=== PATIENT | female | born 1995 | race Caucasian/White ===

== ENCOUNTER 2016-03-16 10:54 | Emergency (ER) | payer OTHER ==
[2016-03-16 11:49] LABS: Hematocrit 44 % (35-47); Hemoglobin 14.9 g/dl (12.0-16.0); Mean Corpuscular HGB Conc 34 g/dl (31-36); Mean Corpuscular Hemoglobin 29 pg (27-31); Mean Corpuscular Volume 86 fL (80-97); Mean Platelet Volume 8 um3 (7.4-10.4); Red Cell Distribution Width 12 % (10.5-15); White Blood Count 13.6 10^3/ul (3.5-10.8)
[2016-03-16 12:04] LABS: Albumin 4.6 g/dL (3.2-5.2); BUN/Creatinine Ratio 12.3 (8-20); Calcium 10.4 mg/dL (8.6-10.3); EGFR African American 115.9 (>60); EGFR Non-African American 90.1 (>60); Globulin 3.9 g/dL (2-4); Potassium 3.7 mmol/L (3.5-5.0); Total Bilirubin 0.5 mg/dL (0.2-1.0); Total Protein 8.5 g/dL (6.4-8.9)
--- NOTE | 2016-03-16 12:34 | RAD ---
Indication: Vaginal bleeding, positive test. Real-time sonography of the pelvis was performed. The study was performed utilizing endovaginal technique. The uterus measures 8.7 x 4.3 x 6.1 cm. Endometrial echo measures 13 mm. There is no evidence of intrauterine noted. No free fluid is identified. The right ovary measures 4.0 x 2.4 x 2.6 cm. Left ovary measures 2.0 x 1.3 x 2.1 cm. Doppler interrogation demonstrates flow in both ovaries. IMPRESSION: No adnexal masses are noted. No evidence of intrauterine is noted.
[2016-03-16 13:13] VITALS: BP 122/78
[2016-03-16 13:20] LABS: Urine Bacteria 1+ (Absent); Urine Bilirubin Negative (Negative); Urine Glucose Negative (Negative); Urine Nitrite Negative (Negative)
--- NOTE | 2016-03-19 06:52 | ED ---
Progress - Progress Note Progress Note: Patient with final c/s for urine evaluation. Shows >100,000 E coli resistant to ampicillin. Patient had positive test with concern for ectopic. Will start patient on macrobid one po bid #14. Will attempt to call patient after 7a. Course/Dx - Diagnoses Provider Diagnoses: Rule out ectopic
--- NOTE | 2016-03-25 09:45 | ED ---
Danny Ovalle Adam, scribed for Robert Boykin MD on 03/16/16 at 1221 . Abdominal Pain/Female - HPI Summary HPI Summary: Pt is a 20 year old female presenting with abdominal cramping and vaginal bleeding. She began spotting this morning and used 1 pad. She reports an elevated temperature of 99.8 F. She denies CP and SOB. She is unsure how far along she is in her . A4 (3 miscarriages, 1 ). - History of Current Complaint Chief Complaint: EDVaginalBleeding Stated Complaint: 6WKS PREG / CRAMPING/VAG DISCHARGE Time Seen by Provider: 03/16/16 12:07 Hx Obtained From: Patient Hx Last Menstrual Period: Last week Onset/Duration: Gradual Onset, Lasting Hours, Still Present Timing: Constant Severity Initially: Moderate Severity Currently: Moderate Pain Intensity: 7 Pain Scale Used: 0-10 Numeric Location: Diffuse Radiates: No Character: Cramping Aggravating Factor(s): Nothing Alleviating Factor(s): Nothing Associated Signs and Symptoms: Positive: Vaginal Bleeding Allergies/Adverse Reactions: Allergies Allergy/AdvReac Type Severity Reaction Status Date / Time Bee Venom Allergy Severe Anaphylatic Verified 03/16/16 10:58 Shock [place] Flavor Allergy Severe Swelling Verified 03/16/16 10:58 Of Face,Lips,& Throat Basil Oil Allergy Hives Verified 03/16/16 10:58 PMH/Surg Hx/FS Hx/Imm Hx Endocrine/Hematology History: Denies: Hx Diabetes, Hx Thyroid Disease Cardiovascular History: Denies: Hx Congestive Heart Failure, Hx Hypercholesterolemia, Hx Hypertension , Hx Pacemaker/ICD, Hx Peripheral Vascular Disease, Other Cardiovascular Problems/Disorders Respiratory History: Reports: Hx Asthma Denies: Hx Chronic Obstructive Pulmonary Disease (COPD), Other Respiratory Problems/Disorders GI History: Denies: Hx Ulcer Musculoskeletal History: Denies: Hx Arthritis, Hx Rheumatoid Arthritis, Hx Osteoporosis, Hx Scoliosis Sensory History: Denies: Hx Cataracts, Hx Contacts or Glasses, Hx Glaucoma, Hx Hearing Aid Opthamlomology History: Denies: Hx Cataracts, Hx Contacts or Glasses, Hx Glaucoma Neurological History: Denies: Hx Headaches, Hx Seizures, Hx Transient Ischemic Attacks (TIA), Other Neuro Impairments/Disorders Psychiatric History: Denies: Hx Anxiety, Hx Depression, Hx Panic Disorder - Surgical History Surgery Procedure, Year, and Place: CHOLECYSTECTOMY Mar 2015 Infectious Disease History: No Infectious Disease History: Denies: Hx Hepatitis, Hx Human Immunodeficiency Virus (HIV), Traveled Outside the [place] in Last 30 Days - Family History Known Family History: Positive: Diabetes - Grandmother - Social History Occupation: Employed Full-time Lives: Alone Alcohol Use: None Hx Substance Use: No Substance Use Type: Reports: None Hx Tobacco Use: Yes Smoking Status (MU): Heavy Every Day Tobacco Smoker Type: Cigarettes Amount Used/How Often: 1 ppd Length of Time of Smoking/Using Tobacco: 1 year Review of Systems Negative: Chest Pain Negative: Shortness Of Breath Positive: Abdominal Pain Positive: other - Vaginal bleeding All Other Systems Reviewed And Are Negative: Yes Physical Exam - Summary Physical Exam Summary: GENERAL: Awake, alert, oriented, no acute distress, very pleasant HEENT: Head is normocephalic, atraumatic, anicteric sclera, clear conjunctiva, mucous membranes moist, no erythema, no discharge, no lesions, neck is supple, trachea is midline, no JVD CARDIAC: Regular rate and rhythm, S1, S2, no rub, no murmur, no gallop, 2+ radial and pedal pulses bilaterally RESPIRATORY: Clear to auscultation bilaterally with no rales, rhonchi, or wheezes, non-tender ABDOMEN: Bowel sounds positive, no bruit, soft, non-tender, no CVA tenderness EXTREMITIES: No edema, warm, dry, moving all extremities in a grossly normal manner NEUROLOGICAL: Mood is appropriate, moving all extremities in a grossly normal manner Triage Information Reviewed: Yes Vital Signs On Initial Exam: Initial Vitals Temp Pulse Resp BP Pulse Ox 97.5 F 99 16 134/63 100 03/16/16 10:56 03/16/16 10:56 03/16/16 10:56 03/16/16 10:56 03/16/16 10:56 Vital Signs Reviewed: Yes - [place] Coma Scale Coma Scale Total: 15 Diagnostics - Vital Signs Vital Signs Temp Pulse Resp BP Pulse Ox 03/16/16 10:56 97.5 F 99 16 134/63 100 - Laboratory Lab Results: Lab Results 03/16/16 03/16/16 03/16/16 Range/Units 11:35 11:35 11:35 WBC 13.6 H (3.5-10.8) 10^3/ul RBC 5.10 (4.0-5.4) 10^6/ul Hgb 14.9 (12.0-16.0) g/dl Hct 44 (35-47) % MCV 86 (80-97) fL MCH 29 (27-31) pg MCHC 34 (31-36) g/dl RDW 12 (10.5-15) % Plt Count 351 (150-450) 10^3/ul MPV 8 (7.4-10.4) um3 Neut % (Auto) 74.8 (38-83) % Lymph % (Auto) 16.1 L (25-47) % Pike % (Auto) 6.1 (1-9) % Eos % (Auto) 2.5 (0-6) % Baso % (Auto) 0.5 (0-2) % Absolute Neuts (auto) 10.2 H (1.5-7.7) 10^3/ul Absolute Lymphs (auto) 2.2 (1.0-4.8) 10^3/ul Absolute Monos (auto) 0.8 (0-0.8) 10^3/ul Absolute Eos (auto) 0.3 (0-0.6) 10^3/ul Absolute Basos (auto) 0.1 (0-0.2) 10^3/ul Absolute Nucleated RBC 0 10^3/ul Nucleated RBC % 0 INR (Anticoag Therapy) 1.06 (0.89-1.11) APTT 34.0 (26.0-36.3) seconds Sodium 132 L (133-145) mmol/L Potassium 3.7 (3.5-5.0) mmol/L Chloride 102 (101-111) mmol/L Carbon Dioxide 23 (22-32) mmol/L Anion Gap 7 (2-11) mmol/L BUN 10 (6-24) mg/dL Creatinine 0.81 (0.51-0.95) mg/dL Est GFR ( Amer) 115.9 (>60) Est GFR (Non-Af Amer) 90.1 (>60) BUN/Creatinine Ratio 12.3 (8-20) Glucose 86 (70-100) mg/dL Lactic Acid (0.5-2.0) mmol/L Calcium 10.4 H (8.6-10.3) mg/dL Total Bilirubin 0.50 (0.2-1.0) mg/dL AST 16 (13-39) U/L ALT 19 (7-52) U/L Alkaline Phosphatase 59 (34-104) U/L Total Protein 8.5 (6.4-8.9) g/dL Albumin 4.6 (3.2-5.2) g/dL Globulin 3.9 (2-4) g/dL Albumin/Globulin Ratio 1.2 (1-3) Beta HCG, Quant Pending 03/16/16 Range/Units 11:35 WBC (3.5-10.8) 10^3/ul RBC (4.0-5.4) 10^6/ul Hgb (12.0-16.0) g/dl Hct (35-47) % MCV (80-97) fL MCH (27-31) pg MCHC (31-36) g/dl RDW (10.5-15) % Plt Count (150-450) 10^3/ul MPV (7.4-10.4) um3 Neut % (Auto) (38-83) % Lymph % (Auto) (25-47) % Pike % (Auto) (1-9) % Eos % (Auto) (0-6) % Baso % (Auto) (0-2) % Absolute Neuts (auto) (1.5-7.7) 10^3/ul Absolute Lymphs (auto) (1.0-4.8) 10^3/ul Absolute Monos (auto) (0-0.8) 10^3/ul Absolute Eos (auto) (0-0.6) 10^3/ul Absolute Basos (auto) (0-0.2) 10^3/ul Absolute Nucleated RBC 10^3/ul Nucleated RBC % INR (Anticoag Therapy) (0.89-1.11) APTT (26.0-36.3) seconds Sodium (133-145) mmol/L Potassium (3.5-5.0) mmol/L Chloride (101-111) mmol/L Carbon Dioxide (22-32) mmol/L Anion Gap (2-11) mmol/L BUN (6-24) mg/dL Creatinine (0.51-0.95) mg/dL Est GFR ( Amer) (>60) Est GFR (Non-Af Amer) (>60) BUN/Creatinine Ratio (8-20) Glucose (70-100) mg/dL Lactic Acid 0.6 (0.5-2.0) mmol/L Calcium (8.6-10.3) mg/dL Total Bilirubin (0.2-1.0) mg/dL AST (13-39) U/L ALT (7-52) U/L Alkaline Phosphatase (34-104) U/L Total Protein (6.4-8.9) g/dL Albumin (3.2-5.2) g/dL Globulin (2-4) g/dL Albumin/Globulin Ratio (1-3) Beta HCG, Quant Result Diagrams: 03/16/16 11:35 03/16/16 11:35 Lab Statement: Any lab studies that have been ordered have been reviewed, and results considered in the medical decision making process. - Additional Comments Diagnostic Additional Comments: TRANSVAGINAL ULTRASOUND - IMPRESSION: No adnexal masses are noted. No evidence of intrauterine is noted. Abdominal Pain Fem Course/Dx - Diagnoses Provider Diagnoses: Rule out ectopic Discharge - Discharge Plan Condition: Stable Disposition: HOME Patient Education Materials: Ectopic (ED) Referrals: Oswaldo Villanueva MD [Primary Care Provider] - Additional Instructions: Follow up with Dr. Villanueva ([facility]) in 2 days. It is extremely important that you follow up with Dr. Villanueva. It could be deadly if you do not. The documentation as recorded by the Danny ramirez Adam accurately reflects the service I personally performed and the decisions made by me, Robert Boykin MD.
== END 2016-03-16 13:11 | disposition home or self-care (01) ==
LOC: ED 10:54
DX: Z32.01 Encounter for pregnancy test, result positive (principal)
CPT/HCPCS: 36415; 76817; 80053; 81003; 81015; 83605; 84702; 85025; 85610; 85730; 86900; 86901; 87077; 87086; 87186; 99282

== ENCOUNTER 2016-05-10 19:31 | Emergency (ER) | payer OTHER ==
[2016-05-10 19:44] VITALS: BP 119/73
--- NOTE | 2016-05-10 20:11 | UC ---
- HPI Summary HPI Summary: Pt is , first three pregnancies spontaneous miscarriages at 9, 6, and 8 weeks. Now 12w , has had 2 ultrasounds confirming IUP with strong HB at 8w and 10w. Since yesterday has had tightness in mid/upper abdomen. Last BM this morning normal, denies urinary burning. Has had UTIs and doesn't think she has a UTI. Had one episode of vaginal spotting red when she wiped yesterday, but says this has been happening regularly since 6w. - History of Current Complaint Chief Complaint: UCAbdominalPain Stated Complaint: PREG 12 WEEKS CRAMPS Time Seen by Provider: 05/10/16 19:35 Hx Obtained From: Patient Chief Complaint: Concern for Demise Onset/Duration: Started Hours Ago, Atraumatic Timing: Constant Severity: Mild Current Severity: Mild Location of Pain: Other: - epigastric Character: Other: - "tight" Aggravating Factors: Nothing Alleviating Factors: Nothing Associated Signs and Symptoms: Negative: Fever - Assessment Hx Now: Yes - Additional Pertinent History Primary Care Physician: [id number] - Allergies/Home Medications Allergies/Adverse Reactions: Allergies Allergy/AdvReac Type Severity Reaction Status Date / Time Bee Venom Allergy Severe Anaphylatic Verified 03/16/16 10:58 Shock Cj Flavor Allergy Severe Swelling Verified 03/16/16 10:58 Of Face,Lips,& Throat Basil Oil Allergy Hives Verified 03/16/16 10:58 Home Medications: Home Medications Cholecalciferol [Vitamin D] 2,000 unit DAILY 05/10/16 [History Confirmed ] Mv & Min W/ Methylfol [ + Complete Multi 0.267 & 373 mg] 05/10 [History] PMH/Surg Hx/FS Hx/Imm Hx Previously Healthy: Yes Endocrine/Hematology History: Denies: Hx Diabetes, Hx Thyroid Disease Cardiovascular History: Denies: Hx Congestive Heart Failure, Hx Hypercholesterolemia, Hx Hypertension , Hx Pacemaker/ICD, Hx Peripheral Vascular Disease, Other Cardiovascular Problems/Disorders Respiratory History: Reports: Hx Asthma Denies: Hx Chronic Obstructive Pulmonary Disease (COPD), Other Respiratory Problems/Disorders GI History: Denies: Hx Ulcer Musculoskeletal History: Denies: Hx Arthritis, Hx Rheumatoid Arthritis, Hx Osteoporosis, Hx Scoliosis Sensory History: Denies: Hx Cataracts, Hx Contacts or Glasses, Hx Glaucoma, Hx Hearing Aid Opthamlomology History: Denies: Hx Cataracts, Hx Contacts or Glasses, Hx Glaucoma Neurological History: Denies: Hx Headaches, Hx Seizures, Hx Transient Ischemic Attacks (TIA), Other Neuro Impairments/Disorders Psychiatric History: Denies: Hx Anxiety, Hx Depression, Hx Panic Disorder - Surgical History Surgery Procedure, Year, and Place: CHOLECYSTECTOMY Mar 2015 Infectious Disease History: No Infectious Disease History: Denies: Hx Hepatitis, Hx Human Immunodeficiency Virus (HIV), Traveled Outside the [place] in Last 30 Days - Family History Known Family History: Positive: Diabetes - grandmother - Social History Alcohol Use: None Substance Use Type: Reports: None Hx Tobacco Use: Yes Smoking Status (MU): Light Every Day Tobacco Smoker Type: Cigarettes Amount Used/How Often: 1 ppd Length of Time of Smoking/Using Tobacco: 1 year Review of Systems Constitutional: Negative Skin: Negative Eyes: Negative ENT: Negative Respiratory: Negative Cardiovascular: Negative Gastrointestinal: Abdominal Pain Genitourinary: Negative Motor: Negative Neurovascular: Negative Musculoskeletal: Negative Neurological: Negative Psychological: Negative All Other Systems Reviewed And Are Negative: Yes Physical Exam - Physical Exam Triage Information Reviewed: Yes Vital Signs Reviewed: Yes Appearance: Positive: Well-Appearing, No Pain Distress, Well-Nourished Skin: Positive: Warm, Skin Color Reflects Adequate Perfusion, Soft Head/Face: Positive: Normal Head/Face Inspection Eyes: Positive: EOMI, ARGELIA, Conjunctiva Clear ENT: Positive: Normal ENT inspection, Hearing grossly normal, Pharynx normal, TMs normal. Negative: Nasal congestion Neck: Positive: Supple, Nontender, No Lymphadenopathy Respiratory/Lung Sounds: Positive: Clear to Auscultation Cardiovascular: Positive: Normal, RRR. Negative: Murmur Abdomen Description: Positive: Nontender, No Organomegaly, Soft, Other: - FHT obtained, regular in the 140s. Negative: CVA Tenderness (R), CVA Tenderness (L) , Distended, Guarding Bowel Sounds: Positive: Present Psychiatric: Positive: Normal Course/Dx - Course Course Of Treatment: Explained that though my exam is limited, there are no signs of danger or impending miscarriage. Encouraged her to call Dr. Villanueva's office tomorrow, and if pain increases or if she develops heavy vaginal bleeding she should go to the ED. - Diagnoses Provider Diagnoses: Epigastric pain Discharge - Discharge Plan Condition: Stable Disposition: HOME Prescriptions: Ranitidine HCl [Zantac 75] 75 mg PO BEDTIME #20 tab Patient Education Materials: Epigastric Pain (ED) Referrals: Derick Villanueva MD [Medical Doctor] - Additional Instructions: Please call Dr. Villanueva's office tomorrow to discuss your concerns. There are no danger signs now, but if you develop any severe pain or heavy vaginal bleeding, please go to the emergency department.
== END 2016-05-10 20:18 | disposition home or self-care (01) ==
LOC: UCEAST 19:31
DX: O26.891 Other specified pregnancy related conditions, first trimester (principal); Z3A.12 12 weeks gestation of pregnancy; R10.13 Epigastric pain; Z87.440 Personal history of urinary (tract) infections; Z90.49 Acquired absence of other specified parts of digestive tract; F17.210 Nicotine dependence, cigarettes, uncomplicated
CPT/HCPCS: 81002; 87086; 99212; G0463

== ENCOUNTER 2016-05-23 10:16 | Emergency (ER) | payer OTHER ==
--- NOTE | 2016-05-23 12:58 | RAD ---
HISTORY: Cramping, pain, bleeding. The gestational age by previous ultrasound is: The proximally 14 weeks COMPARISONS: March 16, 2016 TECHNIQUE: Multiple transverse and longitudinal ultrasound images were obtained of the pelvis using grayscale, color Doppler, spectral Doppler imaging and M-Mode Doppler imaging using the transabdominal transducer. FINDINGS: UTERUS: The uterus is normal in shape, size, contour, and echotexture. GESTATION: There is a single live intrauterine gestation. The crown-rump length measures 8.2 cm for a gestational age of 14 weeks, 1 day. The LAW is November 20, 2016. cardiac motion is detected at a rate of 155 beats per minute. Gross movement is identified. The amniotic fluid is qualitatively normal. There are no retroplacental fluid collections. CUL-DE-SAC: There is no free fluid within the cul-de-sac. RIGHT OVARY: The right ovary measures 3.7 x 2.1 x 2 cm. Normal arterial and venous waveforms are identifiable within the ovary on spectral Doppler imaging. LEFT OVARY: The left ovary measures 2.8 x 1.7 x 2.7 cm. Normal arterial and venous waveforms are identifiable within the ovary on spectral Doppler imaging. OTHER: The cervix is long and closed measuring 3.4 cm. anatomy is not evaluated as part of this examination. IMPRESSION: SINGLE LIVE INTRAUTERINE GESTATION AT 14 WEEKS AND 1 DAY BY CROWN-RUMP LENGTH.
[2016-05-23] MEDS ORDERED: Acetaminophen TAB* 325 MG PO ONE (13:02)
[2016-05-23 13:17] VITALS: BP 137/80
--- NOTE | 2016-05-23 21:05 | ED ---
Judith Ovalle Erika, scribed for Darion Sethi MD on 05/23/16 at 1155 . Abdominal Pain/Female - HPI Summary HPI Summary: Patient is a 20-year-old female presenting to the ED with a CC of LLQ and suprapubic abdominal cramping starting at 06:00. Patient reports that she is 14 weeks , and she is concerned about the fetus. Patient reports that she moved snow this morning, and may have pulled a muscle - she also reports shooting pain in her lower back. Patient took 650 mg Tylenol at 08:00, with some relief. Patient had an ultrasound done at 10 weeks at the [facility]. A2 - patient has had 2 miscarriages at 6 weeks and 9 weeks. She is followed by Dr. Villanueva. Hx asthma - pt has not used an inhaler since she became . - History of Current Complaint Chief Complaint: EDAbdPain Stated Complaint: 14WKS PREG/CRAMPING-BACK PAIN Time Seen by Provider: 05/23/16 11:29 Hx Obtained From: Patient Hx Last Menstrual Period: Last week Onset/Duration: Gradual Onset, Lasting Hours, Still Present Timing: Constant Severity Currently: Moderate Pain Intensity: 8 Pain Scale Used: 0-10 Numeric Location: Discrete At: LLQ, Suprapubic Character: Cramping Alleviating Factor(s): OTC Analgesics Associated Signs and Symptoms: Positive: Back Pain. Negative: Vaginal Bleeding , Vaginal Discharge Allergies/Adverse Reactions: Allergies Allergy/AdvReac Type Severity Reaction Status Date / Time Bee Venom Allergy Severe Anaphylatic Verified 03/16/16 10:58 Shock [place] Flavor Allergy Severe Swelling Verified 03/16/16 10:58 Of Face,Lips,& Throat Basil Oil Allergy Hives Verified 03/16/16 10:58 PMH/Surg Hx/FS Hx/Imm Hx Endocrine/Hematology History: Denies: Hx Diabetes, Hx Thyroid Disease Cardiovascular History: Denies: Hx Congestive Heart Failure, Hx Hypercholesterolemia, Hx Hypertension , Hx Pacemaker/ICD, Hx Peripheral Vascular Disease, Other Cardiovascular Problems/Disorders Respiratory History: Reports: Hx Asthma Denies: Hx Chronic Obstructive Pulmonary Disease (COPD), Other Respiratory Problems/Disorders GI History: Denies: Hx Ulcer Musculoskeletal History: Denies: Hx Arthritis, Hx Rheumatoid Arthritis, Hx Osteoporosis, Hx Scoliosis Sensory History: Denies: Hx Cataracts, Hx Contacts or Glasses, Hx Glaucoma, Hx Hearing Aid Opthamlomology History: Denies: Hx Cataracts, Hx Contacts or Glasses, Hx Glaucoma Neurological History: Denies: Hx Headaches, Hx Seizures, Hx Transient Ischemic Attacks (TIA), Other Neuro Impairments/Disorders Psychiatric History: Denies: Hx Anxiety, Hx Depression, Hx Panic Disorder - Surgical History Surgery Procedure, Year, and Place: CHOLECYSTECTOMY Mar 2015 Infectious Disease History: No Infectious Disease History: Denies: Hx Hepatitis, Hx Human Immunodeficiency Virus (HIV), Traveled Outside the [place] in Last 30 Days - Family History Known Family History: Positive: Diabetes - grandmother - Social History Alcohol Use: None Hx Substance Use: No Substance Use Type: Reports: None Hx Tobacco Use: Yes Smoking Status (MU): Light Every Day Tobacco Smoker Type: Cigarettes Amount Used/How Often: 1 ppd Length of Time of Smoking/Using Tobacco: 1 year Review of Systems Positive: Abdominal Pain Negative: discharge Positive: Myalgia - lower back pain All Other Systems Reviewed And Are Negative: Yes Physical Exam Triage Information Reviewed: Yes Vital Signs On Initial Exam: Initial Vitals Temp Pulse Resp BP Pulse Ox 98.6 F 94 18 124/80 98 05/23/16 10:27 05/23/16 10:27 05/23/16 10:27 05/23/16 10:27 05/23/16 10:27 Vital Signs Reviewed: Yes Appearance: Positive: Well-Appearing, No Pain Distress, Obese Skin: Positive: Warm, Skin Color Reflects Adequate Perfusion, Dry Head/Face: Positive: Normal Head/Face Inspection Eyes: Positive: Normal ENT: Positive: Normal ENT inspection Neck: Positive: Supple, Nontender Respiratory/Lung Sounds: Positive: Clear to Auscultation, Breath Sounds Present Cardiovascular: Positive: RRR Abdomen Description: Positive: Soft, Other: - Mildly tender LLQ and suprabupic. Unable to feel the fundus Bowel Sounds: Positive: Present Musculoskeletal: Positive: Other - Tenderness in the perisacral area Neurological: Positive: Normal Psychiatric: Positive: Affect/Mood Appropriate Diagnostics - Vital Signs Vital Signs Temp Pulse Resp BP Pulse Ox 05/23/16 10:27 98.6 F 94 18 124/80 98 - Laboratory Lab Statement: Any lab studies that have been ordered have been reviewed, and results considered in the medical decision making process. - Ultrasound No standard instances Ultrasound Interpretation Completed By: Radiologist - IMPRESSION: SINGLE LIVE INTRAUTERINE GESTATION AT 14 WEEKS AND 1 DAY BY CROWN-RUMP LENGTH. Abdominal Pain Fem Course/Dx - Diagnoses Provider Diagnoses: LOW BACK STRAIN Discharge - Discharge Plan Condition: Stable Disposition: HOME Patient Education Materials: Low Back Strain (ED) Forms: *Work Release Referrals: Oswaldo Villanueva MD [Primary Care Provider] - The documentation as recorded by the Judith ramirez Erika accurately reflects the service I personally performed and the decisions made by me, Darion Sethi MD.
== END 2016-05-23 13:15 | disposition home or self-care (01) ==
LOC: ED 10:16
DX: O26.891 Other specified pregnancy related conditions, first trimester (principal); R10.32 Left lower quadrant pain; M54.9 Dorsalgia, unspecified; S39.012A Strain of muscle, fascia and tendon of lower back, initial encounter; F17.210 Nicotine dependence, cigarettes, uncomplicated; X58.XXXA Exposure to other specified factors, initial encounter; Y93.9 Activity, unspecified; Y92.9 Unspecified place or not applicable
CPT/HCPCS: 76815; 99282; A9270-GY

== ENCOUNTER → 2016-07-24 22:07 | Emergency (ER) | payer OTHER ==
[2016-07-24 22:12] VITALS: BP 134/76
== END | disposition left against medical advice (07) ==
LOC: ED 22:07
DX: Z91.81 History of falling (principal); Z53.21 Procedure and treatment not carried out due to patient leaving prior to being seen by health care provider

== ENCOUNTER 2016-11-14 10:25 | Inpatient (IN) | payer MEDICAID ==
[2016-11-14 11:23] LABS: Hematocrit 40 % (35-47); Hemoglobin 13.3 g/dl (12.0-16.0); Mean Corpuscular HGB Conc 34 g/dl (31-36); Mean Corpuscular Hemoglobin 29 pg (27-31); Mean Corpuscular Volume 87 fL (80-97); Mean Platelet Volume 8 um3 (7.4-10.4); Red Blood Count 4.53 10^6/ul (4.0-5.4); Red Cell Distribution Width 13 % (10.5-15); White Blood Count 14.2 10^3/ul (3.5-10.8)
[2016-11-14] MEDS ORDERED: OBEPIDURAL* 250 ML ONE (17:45)
[2016-11-14] MEDS ORDERED: Sodium Citrate/Citric Acid* 15 ML UDC PO PRN (18:25)
[2016-11-14] MEDS ORDERED: Famotidine TAB* 20 MG PO PRN (18:25)
[2016-11-14] MEDS ORDERED: EPHEDrine (Pressors)* 50 MG/ML VIAL IV PUSH PRN ×2 (18:25)
[2016-11-14] MEDS ORDERED: Phenylephrine IV* 40 MCG/ML 10 ML SYRINGE IV PUSH PRN ×2 (18:25)
[2016-11-14] MEDS ORDERED: OBEPIDURAL* 250 ML EPIDURAL SCH (19:00)
[2016-11-14] MEDS ORDERED: Oxytocin in LR* 20 UNITS/1,000 ML BAG IVPB ONE (20:15)
[2016-11-14] MEDS ORDERED: Glycerin ADULT SUPP PR PRN (20:45)
[2016-11-14] MEDS ORDERED: Acetaminophen TAB* 325 MG PO PRN (20:45)
[2016-11-14] MEDS ORDERED: Simethicone CHEW TAB* 80 MG PO SCH (21:00)
[2016-11-14] MEDS: Dibucaine 1% 28.35 GM TUBE PR PRN (22:08)
[2016-11-14] MEDS: Witch Hazel PAD* JAR TOPICAL PRN (22:08)
[2016-11-15 07:24] LABS: Hematocrit 34 % (35-47); Hemoglobin 11.8 g/dl (12.0-16.0); Mean Corpuscular HGB Conc 34 g/dl (31-36); Mean Corpuscular Hemoglobin 30 pg (27-31); Mean Corpuscular Volume 87 fL (80-97); Mean Platelet Volume 8 um3 (7.4-10.4); Red Blood Count 3.97 10^6/ul (4.0-5.4); Red Cell Distribution Width 13 % (10.5-15); White Blood Count 15.4 10^3/ul (3.5-10.8)
[2016-11-15] MEDS ORDERED: Ferrous Gluconate TAB* 324 MG TAB PO SCH (09:00)
[2016-11-15] MEDS: Docusate CAP* 100 MG PO SCH ×5 (11:21→21:01)
[2016-11-15] MEDS: Ibuprofen TAB* 600 MG PO PRN ×2 (15:41→22:23)
[2016-11-16 07:52] VITALS: BP 96/43
[2016-11-16] MEDS: Docusate CAP* 100 MG PO SCH (08:39)
[2016-11-16] MEDS: Dibucaine 1% 28.35 GM TUBE PR PRN (08:39)
[2016-11-16] MEDS: Witch Hazel PAD* JAR TOPICAL PRN (08:40)
== END 2016-11-16 11:11 | disposition home or self-care (01) | DRG 560 ==
LOC: MCHOBOUT 10:25 → MCHOB 12:06
PROVIDERS: ADMIT Midwife; ATTEND Midwife
PROC: 10E0XZZ Delivery of Products of Conception, External Approach (ICD-10-PCS; principal; 2016-11-14)
PROC: 0HQ9XZZ Repair Perineum Skin, External Approach (ICD-10-PCS; 2016-11-14)
DX: O99.824 Streptococcus B carrier state complicating childbirth (principal); E05.90 Thyrotoxicosis, unspecified without thyrotoxic crisis or storm; O99.284 Endocrine, nutritional and metabolic diseases complicating childbirth; O99.334 Smoking (tobacco) complicating childbirth; F17.211 Nicotine dependence, cigarettes, in remission; O70.0 First degree perineal laceration during delivery; O69.89X0 Labor and delivery complicated by other cord complications, not applicable or unspecified; Z3A.39 39 weeks gestation of pregnancy; Z37.0 Single live birth
CPT/HCPCS: 36415; 85025; 85027; 86850; 86900; 86901; A9270-GY; J2540

== ENCOUNTER 2018-10-14 13:22 | Emergency (ER) | payer OTHER ==
--- OUTSIDE RECORDS SUMMARY | 2018-10-14 13:29 | XMS REPORT | Continuity of Care Document ---
:1995 Author Organization [facility] Address [address], [place] [id number] Phone Care Team Providers Name Role Phone Boni MONTEMAYORJazmynNicolette Unavailable Unavailable Allergies, Adverse Reactions, Alerts Substance Reaction Status latex Unknown Active Medications Medication Instructions Dosage Effective Dates Status Comments (start - stop) Diflucan 150 mg take 1 tablet by 150 MG - Active tablet oral route once Metrogel Vaginal insert 1 - Active 0.75 % applicatorful by vaginal route every day at bedtime x 5 days VITAMIN D3 Not Available - Active (unknown strength) ZYRTEC-D take 1 tablet by Not Available - Active (unknown oral route every strength) 12 hours ALBUTEROL Not Available - No Longer INHALER (unknown Active strength) Problems Condition Effective Dates (start Clinical Status Comments - stop) Human immunodeficiency virus - [HIV] counseling Encounter for oth general cnsl and advice on contraception Encntr screen for infections w sexl mode of transmiss Other urogenital trichomoniasis Encounter for test, result negative Encntr screen for infections w sexl mode of transmiss Encounter for oth general cnsl and advice on contraception Encntr for f/u exam aft trtmt for cond oth than malig neoplm Encounter for elective termination of Encounter for oth general cnsl and advice on contraception Encntr screen for dis of the bld/bld-form org/immun mechnsm Encounter for oth general cnsl and advice on contraception Less than 8 weeks gestation of Encounter for test, result positive Acute vaginitis Human immunodeficiency virus - [HIV] counseling Encounter for test, result positive Candidiasis of vulva and vagina Encounter for oth general cnsl and advice on contraception Encounter for screening for - human immunodeficiency virus Other gonococcal infection of lower genitourinary tract Encounter for surveillance of contraceptive pills Cystitis, unspecified without hematuria Encntr screen for infections w sexl mode of transmiss Encounter for oth general cnsl and advice on contraception Acute vaginitis Sebaceous cyst Encounter for test, result negative Encntr screen for infections w sexl mode of transmiss Encounter for other procreative management Candidiasis of vulva and vagina Thyrotoxicosis, unsp without thyrotoxic crisis or storm Encounter for test, result negative Noninflammatory disorder of vagina, unspecified Encntr screen for infections w sexl mode of transmiss Encounter for oth general cnsl and advice on contraception Diarrhea, unspecified Abnormal weight loss STI Screening Family Planning Counseling PT, Negative BCM Other, Surveillance EC Counseling Or RX STI Screening Folliculitis BCM Other, Surveillance Yeast-vulvovaginal BCM Other, Surveillance Yeast-vulvovaginal STI Screening Anemia, Screening Implant, Surveillance BCM Other, Start STI Screening Yeast-vulvovaginal STI Screening Yeast-vulvovaginal BCM Other, Surveillance Vaginal Discharge BV STI Screening Folliculitis LABORATORY EXAM NOS LABORATORY EXAM NOS Migraine W/ Aura - Chronic BV - Chronic Gonorrhea - Chronic RhD positive - Active Migraine with aura - Active Verified. -LMB Procedures Procedure Date No information Results Test Name Date and Time Measure Units Reference Range Abnormal Flag Status Comments No information Advance Directives Directive Yes / No Effective Date File Name No information Encounters Encounter Practice Location Reason(s) Diagnoses Date Provider Providers Description For Visit Copied on Encounter [facility] Lalit- Boni [facility] [place] immunodeficienc Nicolette. 620 Provider: Carlos Alberto y virus [HIV] [address] Ravindra Hummel, Nicolette [place] counseling [place], [place], Boni Lopez, 620 [facility], 620 [address], [place]. [place] tel:[phone] , [place], , [place], [address] [place], [address]. [place], tel:[phone], [phone] [place] tel:[phone] [facility] Encounter for Mirza Lay. Referring [facility] [place] oth general [address] [place] Provider: [facility] cnsl and advice [address] St, [place], [place], [address], [place], 620 [place], 620 contraceptionEn [place]. [place] cntr screen for St, [place], [place], [place], [place], [address]. [place], sexl mode of [id number], transmissOther [place] urogenital tel:[phone] trichomoniasis [phone] [facility] Mirza Lay. [facility] [place] [address] [place] [address], [place], [place], [address], [place], [address] [place], [place], [place], [id number], [place] tel:[phone] [facility] Nov- Mirza Lay. [facility] [place] [address] [place] [address], [place], [place], [address], [place], [address] [place], [place], [place], [id number], [place] tel:[phone] [facility] Encounter for May- [place] [facility]erring [facility] [place] test, dania Sueane. Provider: [facility] result 8 [address] [place] Sueane [place] negativeEncntr St, [place], [place], [address] [place], [address]. mmer, [address] [place] infections w tel:[phone], [place], [place], [place] [address] [place], [place], transmissEncoun [address]. [id number], ter for oth tel:[phone] [place] general cnsl 723851 tel:[phone] and advice on [id number] contraceptionEn cntr for f/u exam aft trtmt for cond oth than malig neoplm [facility] Encounter for Apr- Kylee Referring [facility] [place] elective 0-201 Eva. 620 W Provider: [facility] termination of [address], Eva [place] pregnancyEncoun [place], [place], Kylee [facility], [address] ter for oth [address]. M, [address] [place] general cnsl tel:[phone], , [place], [place] [address] [place], [place] [address]. [id number], tel:[phone] [place] 059[address] tel:[phone] [facility] Encntr screen Mirza Rosanne. Referring [facility] [place] for dis of the [address] [place] Provider: [place] bld/bld-form 8 , [place], [place], [address], [place], 620 [facility], 620 mechnsmEncounte [place]. [place] r for oth , [place], , [place], [place], [address]. [place], and advice on [id number], contraceptionLe [place] ss than 8 weeks tel:[phone] gestation of [phone] pregnancyEncoun ter for test, result positiveAcute vaginitis [facility] Human Mirza Rosanne. [facility] [address] [place] Provider: [facility] y virus [HIV] 8 , [place], [place], [address], [place], [address] [place] [address], [facility] nter for [place]. [place] test, , [place], St, [place], [place], [address]. [place], positiveCandidi [id number], asis of vulva [place] and tel:[phone] vaginaEncounter [phone] for oth general cnsl and advice on contraceptionEn counter for screening for human immunodeficienc y virus [facility] Other Mirza Rosanne. [facility] gonococcal [address] [place] Provider: [place] infection of 8 , [place], [place], [address], [facility]. [facility], [facility] genitourinary [place]. [place] [address], [place], [place], [id number], [place] tel:[phone] [facility] Encounter for Mirza Lay. [facility] surveillance of [address] [place] Provider: [place] contraceptive 8 , [place], [place], [address], [place], 620 [place], 620 unspecified [place]. [place] without St, [place], St, [place], [place], [address]. [place], screen for [id number], infections w [place] sexl mode of tel:[phone] transmiss [phone] [facility] Encounter for Oct- Mirza Lay. [facility] [place] oth general 6-201 [address] [place] Southern cnsl and advice [address] St, [place], [place], [address], [facility], 620 contraceptionAc [place]. [place] [address], [place], vaginitisSebace [place], ous cyst [id number], [place] tel:[phone] [facility] Encounter for Sep-1 [facility] [place] test, 4201 Flory. 620 Southern result [address], [place] negativeEncntr [place], [facility], 620 [place] [address], [place]. [place] infections w tel:[phone] St, [place], [place] [address] [place], transmissEncoun [id number], ter for other [place] procreative tel:[phone] managementCandi [phone] diasis of vulva and vagina [facility] Thyrotoxicosis, Mar-2 [facility] [place] unsp without 2-201 Rafaela. [address] [place] thyrotoxic [address], [place] crisis or storm [place], [facility], 620 [address]. [place] tel:[phone] St, [place], [address] [place], [id number], [place] tel:[phone] [facility] Encounter for Mar-1 [facility] [place] test, 7201 Rafaela. [address] W Southern result [address], [place] negativeNoninfl [place], [facility], 620 ammatory [address]. [place] disorder of tel:[phone] St, [place], vagina, [address] [place], unspecifiedEncn [id number], tr screen for [place] infections w tel:[phone] sexl mode of 040360 transmissEncoun ter for oth general cnsl and advice on contraceptionDi arrhea, unspecifiedAbno rmal weight loss [facility] STI Sep-1 [facility] [place] ScreeningFamily 1- Blank. 620 [address] [place] Planning [address], [place] Counsel[place], [facility], 620 [address]. [place] tel:[phone] St, [place], [address] [place], [id number], [place] tel:[phone] [facility] PT, NegativeBCM Apr-2 [place] Referring [facility] [place] Other, 7 Maritza. 620 W [facility] [address], Maritza [place] Counseling [place], [place], [facility], 620 RXSTI [address]. [address] [place] ScreeningFollic tel:[phone], St, [place], ulitis [address] [place], [address]. [id number], tel:[phone] [place] 663961 tel:[phone] [facility] BCM Other, Cosme-0 Milo Haro. Referring [facility] [place] Surveillance 6 [address] [place] Provider: [facility] [address], [place], [place], [address]. Pedraza, [address] [place] [address], 620 tel:[phone] [place] [address] [address], [place], [place], [place], [address]. [place], tel:[phone], [phone] [place] lting tel:[phone] Provider: 758308 NURSE [place] [facility]. [facility] Yeast-vulvovagi Nov-2 [place] [facility] [place] nal 5-201 dania Sueane. Southern 4 [address] [place], [place], [facility], [address] [place], [address]. [place] tel:[phone] St, [place], [address] [place], [id number], [place] tel:[phone] [facility] BCM Other, Oct-2 [place] Referring [facility] [place] Surveillance 8-201 dania Sueane. Provider: Southern 4 [address] [place] [address], [place], [place] [facility], 620 [place], [address]. mmer, [address] [place] tel:[phone], St, [place], [address] [place], [address]. [id number], tel:[phone] [place] [phone] tel:[phone] lting [phone] Provider: NURSE [place] [facility]. [facility] Yeast-vulvovagi Dec-0 P[facility] [place] nalSTI 6Sepia. 620 [address] [place] Screening [address], [place], [facility], 620 [address]. [place] tel:[phone] St, [place], [address] [place], [id number], [place] tel:[phone] [facility] Anemia, Milo Haro. Referring [facility] [place] ScreeningImplan [address] [place] Provider: [facility] t, 4 St, [place], [place], [address]. Pedraza, 620 [facility], 620 Other, Start tel:[phone] [address] [place] [address] [place] [address] [address], [place], [place], [place], [address]. [place], tel:[phone], [address] [place] tel:[phone] [facility] STI Sep- Parete [facility] [place] ScreeningYeast- 7 Marina. 620 [address] [place] vulvovaginal [address], [place], [facility], 620 [address]. [place] tel:[phone] St, [place], [address] [place], [id number], [place] tel:[phone] [facility] STI Jun- [place] [facility] [place] ScreeningYeast- 7-201 dania Sueane. [place] vulvovaginalBCM 4 [address] [place] Other, St, [place], [facility], [address] [place], [address]. [place] inal Discharge tel:[phone] St, [place], [address] [place], [id number], [place] tel:[phone] [facility] Migraine W/ May- [facility] [place] AuraBVGonorrhea 0-201 Maritza. [address], [place], [facility], 620 [address]. [place] tel:[phone] St, [place], [address] [place], [id number], [place] tel:[phone] [facility] BVSTI Apr- Raphaelidis [facility] [place] ScreeningFollic 7-201 Blank. 620 W [facility] ulitis [address], [place], [place], [facility], 620 [address]. [place] tel:[phone] St, [place], [address] [place], [id number], [place] tel:[phone] [facility] Apr- [facility] [place] 0-201 Maritza. [address], [place], [facility], 620 [address]. [place] tel:[phone] St, [place], [address] [place], [id number], [place] tel:[phone] [facility] LABORATORY EXAM [facility] [place] NOS 1-201 Maritza. [address], [facility], [place], [facility], 620 [address]. [address] [place] tel:[phone] , [place], [address] [place], [id number], [place] tel:[phone] [facility]AM [facility] [place] NOS 1-201 Maritza. 620 W [facility] [address], [place], [place], [facility], [facility] [address]. [place] tel:[phone] , [place], [address] [place], [id number], [place] tel:[phone] Family History Family Member Diagnosis Age At Onset grandfather Hyperlipidemia Father Hyperlipidemia grandmother Hyperlipidemia Sister Cancer, breast 45 grandmother Diabetes mellitus No family history of Myocardial infarction No family history of Stroke Immunizations Vaccine Date Status Comments No information Payers Payer name Insurance type Covered green party ID Authorization(s) Pk KEARNEY [facility] CI [id number] Social History Type Description Quantity Date Captured Comments Alcohol Use Details Unknown Caffeine Use Unknown Details Tobacco Use Status Moderate cigarette smoker (10-19 cigs/day) Smoking Status Heavy tobacco smoker Smoking Tobacco Use Cigarette: Years Used 2 Cigarette: 10 Cigarettes per day , Pack Year: 1 Details Sex Female Vital Signs Date / Height Weight BMI Pulse Blood Temperature Respiratory Body Head BMI Pulse Inhaled Time: Rate Pressure Rate Surface Circumference percentile Ox Ox Area No information Chief Complaint And Reason For Visit No information Reason For Referral Reason For Referral No information Plan Of Treatment Date Type Action Status Goal Tobacco cessation counseling completed Goal Tobacco cessation counseling completed Referral Ordered: ordered Endocrinology, Diabetes and Metabolism (related to Thyrotoxicosis, unsp without thyrotoxic crisis or storm) Referral Referred To: ordered Nas Ambrose [address] [place] [address], [phone] Ordered: Referrals: Endocrinology, Diabetes and Metabolism. Nas Ambrose History Of Present Illness Encounter Date Complaint History Of Present Illness No information Functional Status Date Functional Assessment No information Medications Administered Medication Instructions Dosage Effective Dates (start - stop) Status Comments No information Instructions Date Instruction Additional Information No information Assessments Type Assessment Date assessment Human immunodeficiency virus [HIV] counseling Goals Health Concern Goal Type Priority Status Date No information Medical Equipment Description Device Five Points Device Identifier Effective Dates (start - stop ) Status No information Mental Status Date Cognitive Assessment No information Health Concerns Observation Date No information Concern Status Date No information
[2018-10-14 13:37] VITALS: BP 124/81
--- NOTE | 2018-10-14 13:39 | UC ---
Ear Complaint HPI - HPI Summary HPI Summary: 23 yo female presents with 2 days of right ear pain and headache. She tells me that she has a history of migraines. 2 days ago developed right ear pain that feels like it is throbbing and stabbing on the inside. This triggered a migraine for her. She took her imitrex, but has had no relief. She has not taken anything OTC for her discomfort. Denies fever, chills, sinus symptoms, sore throat, cough, SOB, chest pain, dizziness, weakness, or numbness. She does feel nauseous, but has had no vomiting. She is currently on her period. - History of Current Complaint Chief Complaint: UCHeadache Stated Complaint: EARPAIN HEADACHE Time Seen by Provider: 10/14/18 13:38 Hx Obtained From: Patient Hx Last Menstrual Period: 10/10/18 Onset/Duration: Gradual Onset Severity Initially: Severe Severity Currently: Severe Pain Intensity: 10 Pain Scale Used: 0-10 Numeric - Allergies/Home Medications Allergies/Adverse Reactions: Allergies Allergy/AdvReac Type Severity Reaction Status Date / Time bee venom protein (honey bee) Allergy Severe Anaphylatic Verified 10/14/18 13:37 Shock arlin Allergy Severe Swelling Verified 10/14/18 13:37 Of Face,Lips,& Throat basil Allergy Intermediate Hives Verified 10/14/18 13:37 latex Allergy Intermediate Hives Verified 10/14/18 13:37 PMH/Surg Hx/FS Hx/Imm Hx - Additional Past Medical History Additional PMH: Migraine - Surgical History Surgical History: Yes Surgery Procedure, Year, and Place: CHOLECYSTECTOMY Mar 2015 - Family History Known Family History: Positive: Diabetes - grandmother - Social History Alcohol Use: None Substance Use Type: None Smoking Status (MU): Former Smoker Type: Cigarettes Amount Used/How Often: 1 ppd Length of Time of Smoking/Using Tobacco: 1 year Have You Smoked in the Last Year: Yes Household Exposure Type: Cigarettes - Immunization History Most Recent Influenza Vaccination: 2016 Most Recent Tetanus Shot: Unknown Most Recent Pneumonia Vaccination: Never Review of Systems All Other Systems Reviewed And Are Negative: Yes Constitutional: Positive: Negative Skin: Positive: Negative Eyes: Positive: Negative ENT: Positive: Ear Ache Respiratory: Positive: Negative Cardiovascular: Positive: Negative Gastrointestinal: Positive: Negative Neurovascular: Positive: Negative Musculoskeletal: Positive: Negative Neurological: Positive: Headache Psychological: Positive: Negative Physical Exam - Summary Physical Exam Summary: GENERAL: NAD. WDWN. No pain distress. SKIN: No rashes, sores, ulcers, masses, lesions. HEENT: Head: AT/NC. No raccoon eyes or battles sign. Eyes: PERRLA. EOM intact. Conjunctiva clear without inflammation or discharge. Ears: Hearing grossly normal. RIGHT TM with mild erythema and bulging. No canal erythema or edema. No hemotympanum. LEFT TM intact and WNL. Nose: Nasal mucosa pink and moist. NTTP maxillary and frontal sinus. Throat: Posterior oropharynx without exudates, erythema, or tonsillar enlargement. Uvula midline. NECK: Supple. Nontender. FROM CHEST: CTAB. No r/r/w. No accessory muscle use. Breathing comfortably and in no distress. CV: RRR. Without m/r/g. Pulses intact. Brisk cap refill. ABDOMEN: Soft. NTTP. Bowel sounds present MSK: FROM in B/L UEs and LEs with symmetric strength. NEURO: A&Ox3. 3 word recall, remote, recent memory, ability to follow 2-step directions, and attention intact. CN: II: Peripheral beck intact. Vision normal. III, IV, : EOMI. No nystagmus. PERRLA. V: Sensations intact and symmetric. Opens mouth and clenches teeth. VII: No facial asymmetry. Forehead wrinkles. Grins, shuts eyes, frowns, puffs cheeks. VIII: Hearing intact to finger rub. IX, X: Swallows and coughs. Uvula midline. XI: Shrugs shoulders. Turns head against resistance. XII: No tongue deviation Pwepgh-pt-pwko are intact. Gait with normal base. Romberg: maintains balance, no pronator drift. Normal speech. No facial drooping. PSYCH: Age appropriate behavior. Triage Information Reviewed: Yes Vital Signs: Initial Vital Signs Temp 98 F 10/14/18 13:34 Pulse 79 10/14/18 13:34 Resp 16 10/14/18 13:34 BP 124/81 10/14/18 13:34 Pulse Ox 100 10/14/18 13:34 Vital Signs Reviewed: Yes Ear Complaint Course/Dx - Course Course Of Treatment: CT brain: IMPRESSION: No acute intracranial abnormality. In the clinic she was given toradol and zofran for her symptoms with good improvement of nausea and slight improvement of her headache. I suspect her headache will improve with treatment of the the ear infection. I will place her on amoxicillin for otitis media. - Differential Dx/Diagnosis Provider Diagnosis: Otitis media, Migraine Discharge - Sign-Out/Discharge Documenting (check all that apply): Patient Departure All imaging exams completed and their final reports reviewed: Yes - Discharge Plan Condition: Stable Disposition: HOME Prescriptions: Amoxicillin PO (*) [Amoxicillin 875 MG (*)] 875 mg PO BID #14 tab Patient Education Materials: Migraine Headache (ED), Ear Infection (ED) Referrals: Conchita Anglin MD [Primary Care Provider] - Additional Instructions: If you develop a fever, shortness of breath, chest pain, new or worsening symptoms - please call your PCP or go to the ED immediately. - Billing Disposition and Condition Condition: STABLE Disposition: Home
[2018-10-14] MEDS ORDERED: Ketorolac *IM* INJ* 60 MG/2 ML VIAL IM ONE (13:44)
[2018-10-14] MEDS ORDERED: Ondansetron ODT TAB* 4 MG SL ONE (13:44)
== END 2018-10-14 14:42 | disposition home or self-care (01) ==
LOC: UCEAST 13:22
DX: H66.91 Otitis media, unspecified, right ear (principal); G43.909 Migraine, unspecified, not intractable, without status migrainosus; Z87.891 Personal history of nicotine dependence; Z91.040 Latex allergy status
CPT/HCPCS: 70450; 99212; A9270-GY; G0463; J1885

== ENCOUNTER 2019-01-28 11:53 | Emergency (ER) | payer OTHER ==
--- OUTSIDE RECORDS SUMMARY | 2019-01-28 12:00 | XMS REPORT | Continuity of Care Document ---
:1995 External Reference #:[id number] Author Name Conchita Anglin MD (transmitted by agent of provider Cindy Wade) Address [address], [place] [address] Care Team Providers Name Role Phone Conchita Anglin MD - Internal Medicine Care Team Information Clinical Tech Problems Active Problems Provider Date Migraine without aura, not refractory David Miguel M.D.,FACP Onset: Mild depression Lavon Romero NP Onset: 08/15/2015 Asthma without status asthmaticus Lavon Romero NP Onset: 08/15/2015 Postcholecystectomy syndrome Lvaon Romero NP Onset: 08/15/2015 Hyperthyroidism Lavon Romero NP Onset: 08/17/2015 Social History Type Date Description Comments Sex Unknown Tobacco Use Reviewed: 08/15/15 Heavy tobacco smoker 1/2 PPD for 1 year (more than 10 cigarettes/day) Smoking Status Reviewed: 01/21/19 Heavy tobacco smoker 1/2 PPD for 1 year (more than 10 cigarettes/day) ETOH Use Occasionally consumes once a month alcohol Tobacco Use Start: Unknown Patient is a current smoker, smokes every day Recreational Drug Use Denies Drug Use Tobacco Use Start: Unknown Heavy tobacco smoker (more than 10 cigarettes/day) Exercise Type/Frequency Does not exercise Allergies, Adverse Reactions, Alerts Active Allergies Reaction Severity Comments Date Bee Sting Anaphylaxis 08/15/2015 Mangos Anaphylaxis Mangos 08/15/2015 Basil Anaphylaxis Basil 08/15/2015 Latex 12/23/2017 Medications Active Medications SIG Qnty Indications Ordering Provider Date Albuterol Sulfate use as directed, 8.500gm Conchita Anglin MD 01/21/2019 HFA 2 puffs once 108(90Base) daily as needed mcg/Act Aerosol Propranolol HCL take one tablet 30tabs F41.9 Conchita Anglin MD 01/21/2019 10mg every 8 hours as Tablets needed for anxiety Sumatriptan take 1/2 tablet 9tabs G43.011 Conchita Anglin MD 03/17/2018 Succinate by mouth at onset 100mg of headache. may Tablets repeat after 2 hours as needed. max 2 tabs in 24hrs Omeprazole 1 by mouth every 30caps Lindsay Enriquez NP 01/14/[address] Rinaldi 2-Nitesh use as directed 2units Conchita Anglin MD 0.3mg/0.3ML Solution Auto-Inject History Medications Benzonatate one by mouth 30caps Kelly Yo, 10/21/2018 - 100mg three times daily N.P. 11/04/2018 Capsules as needed for cough Fluticasone 2 sprays each 16gm Kelly Ram, 10/21/2018 - Propionate nostril once N.P. 11/04/2018 50mcg/Act daily as needed Suspension Immunizations Description No Information Available Vital Signs Date Vital Result Comment 01/21/2019 10:45am Height 68 inches 5'8" Weight 193.00 lb Heart Rate 76 /min BP Systolic Sitting 116 mmHg BP Diastolic Sitting 87 mmHg Body Temperature 98.2 F O2 % BldC Oximetry 98 % BMI (Body Mass Index) 29.3 kg/m2 07/16/2018 10:27am Height 68 inches 5'8" Weight 183.00 lb Heart Rate 85 /min BP Systolic Sitting 128 mmHg BP Diastolic Sitting 85 mmHg Body Temperature 97.5 F O2 % BldC Oximetry 99 % BMI (Body Mass Index) 27.8 kg/m2 Results Description No Information Available Procedures Description No Information Available Medical Devices Description No Information Available Encounters Description No Information Available Assessments Date Code Description Provider 01/21/2019 F41.9 Anxiety disorder, unspecified Conchita Anglin MD Plan of Treatment Future Appointment(s):02/11/2019 8:00 am - Conchita Anglin MD at [facility] Internal Medicine - [address]/23/2018 - Conchita Anglin MDF41.9 Anxiety disorder, unspecifiedNew Medication:Propranolol HCL 10 mg - take one tablet every 8 hours as needed for anxietyComments:Please call on saturday to let me know if this is helping or notFollow up:F/U 2 weeks Functional Status Description No Information Available Mental Status Description No Information Available Referrals Description No Information Available
[2019-01-28 13:26] VITALS: BP 112/80
[2019-01-28] MEDS ORDERED: Albuterol 2.5 MG/3 ML NEB.SOL* (0.083%) INH ONE (13:54)
[2019-01-28] MEDS ORDERED: Ipratropium 0.5MG/2.5ML NEB* 0.5 MG/2.5 ML NEB.SOLN INH ONE (13:54)
[2019-01-28] MEDS ORDERED: predniSONE TAB* 20 MG PO ONE (13:54)
--- NOTE | 2019-01-28 13:54 | UC ---
Respiratory Complaint HPI - HPI Summary HPI Summary: The patient is a 23-year-old female with a history of asthma that presents here with a three-day history of productive cough and chest tightness. She has been using her rescue inhaler. She denies any fever or chills. She denies any nasal congestion or postnasal drip. She has had no nausea vomiting or diarrhea. - History of Current Complaint Chief Complaint: UCGeneralIllness Stated Complaint: UPPER RESP ISSUE Time Seen by Provider: 01/28/19 13:47 Hx Obtained From: Patient Hx Last Menstrual Period: 12/31/18 Onset/Duration: Gradual Onset, Lasting Days Timing: Constant Severity Initially: Mild Severity Currently: Moderate Pain Intensity: 8 Pain Scale Used: 0-10 Numeric Character: Cough: Nonproductive Aggravating Factors: Exertion, Deep Breaths, Recumbent Position Associated Signs And Symptoms: Positive: Pleuritic Chest Pain, Wheezing. Negative: Nasal Congestion, Hoarseness, Sinus Discomfort - Allergies/Home Medications Allergies/Adverse Reactions: Allergies Allergy/AdvReac Type Severity Reaction Status Date / Time bee venom protein (honey bee) Allergy Severe Anaphylatic Verified 01/28/19 13:19 Shock arlin Allergy Severe Swelling Verified 01/28/19 13:19 Of Face,Lips,& Throat basil Allergy Intermediate Hives Verified 01/28/19 13:19 latex Allergy Intermediate Hives Verified 01/28/19 13:19 PMH/Surg Hx/FS Hx/Imm Hx Previously Healthy: Yes Respiratory History: Asthma, Bronchitis - Surgical History Surgical History: Yes Surgery Procedure, Year, and Place: CHOLECYSTECTOMY Mar 2015 - Family History Known Family History: Positive: Diabetes - grandmother, Respiratory Disease - Social History Alcohol Use: None Substance Use Type: Marijuana Substance Use Comment - Amount & Last Used: daily Smoking Status (MU): Heavy Every Day Tobacco Smoker Type: Cigarettes Amount Used/How Often: 1/2 PPD Length of Time of Smoking/Using Tobacco: 1 year Have You Smoked in the Last Year: Yes Household Exposure Type: Cigarettes - Immunization History Most Recent Influenza Vaccination: 2016 Most Recent Tetanus Shot: Unknown Most Recent Pneumonia Vaccination: Never Review of Systems All Other Systems Reviewed And Are Negative: Yes Constitutional: Positive: Negative Skin: Positive: Negative Eyes: Positive: Negative ENT: Positive: Negative Respiratory: Positive: Cough Cardiovascular: Positive: Chest Pain Gastrointestinal: Positive: Negative Genitourinary: Positive: Negative Motor: Positive: Negative Neurovascular: Positive: Negative Musculoskeletal: Positive: Negative Neurological: Positive: Negative Psychological: Positive: Negative Physical Exam Triage Information Reviewed: Yes Appearance: Well-Appearing, No Pain Distress, Well-Nourished Vital Signs: Initial Vital Signs Temp 98.6 F 01/28/19 13:21 Pulse 65 01/28/19 13:21 Resp 18 01/28/19 13:21 BP 112/80 01/28/19 13:21 Pulse Ox 97 01/28/19 13:21 Vital Signs Reviewed: Yes Eyes: Positive: Conjunctiva Clear ENT: Positive: Hearing grossly normal, Uvula midline. Negative: Nasal congestion, Nasal drainage, Trismus, Muffled voice, Hoarse voice Neck: Positive: Supple, Nontender, No Lymphadenopathy Respiratory: Positive: Chest non-tender, No respiratory distress, No accessory muscle use, Wheezing Cardiovascular: Positive: RRR, No Murmur Musculoskeletal: Positive: ROM Intact, No Edema Neurological: Positive: Alert Psychological Exam: Normal Skin Exam: Normal Re-Evaluation - Re-Evaluation First Eval Change: Improved - lungs clear/better air movement Respiratory Course/Dx - Differential Dx/Diagnosis Provider Diagnosis: Acute asthma exacerbation Discharge ED - Sign-Out/Discharge Documenting (check all that apply): Patient Departure All imaging exams completed and their final reports reviewed: No Studies - Discharge Plan Condition: Stable Disposition: HOME Prescriptions: predniSONE TAB* [Deltasone 20 MG TAB*] 40 mg PO DAILY #10 tab Patient Education Materials: Bronchospasm (ED) Forms: *Work Release Referrals: Conchita Anglin MD [Primary Care Provider] - 5 Days (if not better) Additional Instructions: use your inhaler 2 puffs 4x day for 5 days then as needed recheck for new or worsening symptoms - Billing Disposition and Condition Condition: STABLE Disposition: Home
== END 2019-01-28 14:48 | disposition home or self-care (01) ==
LOC: UCEAST 11:53
DX: J45.901 Unspecified asthma with (acute) exacerbation (principal); F17.210 Nicotine dependence, cigarettes, uncomplicated; Z91.030 Bee allergy status; Z91.018 Allergy to other foods; Z91.040 Latex allergy status; Z91.09 Other allergy status, other than to drugs and biological substances
CPT/HCPCS: 99212; G0463; J7512